=== PATIENT | female | born 1945 | race Caucasian/White ===

== ENCOUNTER 2017-04-16 13:58 | Inpatient (IN) | payer MEDICAID, MEDICARE ==
[~2017-04-16] VITALS: Ht 175.3 cm; Wt 140.2 kg
[2017-04-16] MEDS ORDERED: IV NORMAL SALINE 500 ML BAG IV ONE ×2 (14:30→15:15)
[2017-04-16] MEDS ORDERED: ALBUTEROL SULFATE 2.5 MG/3 ML NEBU NEB ONE ×2 (14:30→16:45)
[2017-04-16] MEDS ORDERED: ALBUTEROL SULFATE 2.5 MG/3 ML NEBU ONE ×2 (15:09→17:11)
[2017-04-16 15:20] LABS: BASOPHILS % (AUTO) 0.5 % (0.0-2.0); HEMATOCRIT 38.4 % (31.2-41.9); LYMPHOCYTES # (AUTO) 2.2 K/uL (20.0-40.0); LYMPHOCYTES % (AUTO) 36.7 % (20.5-51.5); MEAN CORPUSCULAR HEMOGLOBIN 29.9 uug (24.7-32.8); MEAN CORPUSCULAR HGB CONC 34 g/dL (32.3-35.6); MEAN CORPUSCULAR VOLUME 88.6 fL (75.5-95.3); MONOCYTES # (AUTO) 0.9 K/uL (2.0-10.0); NEUTROPHILS % (AUTO) 48.8 % (38.5-71.5); PLATELET COUNT (AUTO) 217 K/uL (179-408); RED BLOOD CELL COUNT(AUTO) 4.34 MIL/uL (3.63-4.92); WHITE BLOOD COUNT (AUTO) 6.1 K/uL (3.8-11.8)
[2017-04-16 15:26] LABS: CREATININE 0.9 mg/dL (0.6-1.3); POTASSIUM 3.7 mmol/L (3.5-5.1)
[2017-04-16 15:40] LABS: BILIRUBIN,DIRECT 0.2 mg/dL (0.0-0.2); BILIRUBIN,TOTAL 0.5 mg/dL (0.2-1.0); TOTAL PROTEIN, SERUM 7.7 g/dL (6.4-8.2)
[2017-04-16] MEDS ORDERED: PIPERACILLIN SODIUM/TAZOBACTAM 3.375 G in IV DEXTROSE 5% 50 ML IV ONE (15:45)
[2017-04-16] MEDS ORDERED: LEVOFLOXACIN 750 MG/D5W 150 ML PIGGYBACK IV ONE (15:45)
[2017-04-16] MEDS ORDERED: VANCOMYCIN IV 1,000 MG in IV DEXTROSE 5% 250 ML IV ONE (15:45)
[2017-04-16] MEDS ORDERED: LEVOFLOXACIN 750MG/D5W 150 ML IV ONE (16:11)
[2017-04-16] MEDS ORDERED: VANCOMYCIN IV 200 ML ONE (16:11)
[2017-04-16] MEDS ORDERED: PIPERACILLIN/TAZOBACTAM/D5W 50 ML IV ONE (16:12)
--- NOTE | 2017-04-16 16:39 | NUR ---
LABS DRAWN/SENT/BLD CX'S DRAWN, PT HAD CT AND XRAYS DONE, PRESENTLY 0.9NS AND LEC=VAQUIN IVPB INFUSING. MONITOR SHOWS NSR, PT POSITIONED FOR COMFORT. PT'S DAUGHTER AT THE BEDSIDE.
--- NOTE | 2017-04-16 18:51 | NUR ---
FAMILY TO BRING MEDICATIONS FOR RECONCILIATION.
--- NOTE | 2017-04-16 19:02 | NUR ---
PT AWAITING FOR TELE BED, BEDSIDE SBAR REPORT TO YAMILETH MONTGOMERY.
[2017-04-16] MEDS ORDERED: CEFTRIAXONE 1 G in IV DEXTROSE 5% 50 ML IV SCH (22:00)
[2017-04-16] MEDS ORDERED: ALBUTEROL SULFATE 2.5 MG/3 ML NEBU NEB PRN (22:00)
[2017-04-16] MEDS ORDERED: TEMAZEPAM 15 MG CAPSULE PO PRN (22:00)
[2017-04-16] MEDS ORDERED: MORPHINE SULFATE 2 MG/1 ML DISP.SYRIN IV PRN (22:00)
[2017-04-16] MEDS ORDERED: ACETAMINOPHEN 325 MG TABLET PO PRN (22:00)
[2017-04-16] MEDS ORDERED: MAGNESIUM HYDROXIDE 30 ML LIQUID UDC PO PRN (22:00)
[2017-04-16] MEDS ORDERED: ONDANSETRON 4 MG/2 ML VIAL IV PRN (22:00)
[2017-04-16] MEDS ORDERED: AZITHROMYCIN 500 MG VIAL IV ONE (22:39)
[2017-04-16] MEDS: AZITHROMYCIN IV 500 MG in IV DEXTROSE 5% 250 ML IV SCH (22:53)
--- NOTE | 2017-04-17 01:22 | NUR ---
Pt. admitted to TELE, under care of Dr. Tidwell Belongs List completed
--- NOTE | 2017-04-17 01:25 | NUR ---
PT RECEIVED FROM ED, VIA BioclonesNEY. DAUGHTER AT BEDSIDE. PT AND FAMILY ORIENTED TO ROOM. PT IS FARSI SPEAKING BUT DAUGHTER ABLE TO TRANSLATE. A/OX3. ABLE TO MAKE NEEDS KNOWN. V/S STABLE. IN NO ACUTE DISTRESS. NO C/O PAIN AT THIS TIME. IV INTACT AND PATENT. ON 2L NC, TOLERATING WELL. SINUS RHYTHM AT 80BPM ON THE TELE MONITOR. AFEBRILE. SAFETY MEASURES IMPLEMENTED. CALL LIGHT WITHIN REACH.
[2017-04-17 01:45] VITALS: BP 128/53
[2017-04-17] MEDS ORDERED: CEFTRIAXONE 1 G VIAL ONE (02:24)
[2017-04-17 04:00] VITALS: BP 146/60
[2017-04-17] MEDS: PANTOPRAZOLE SODIUM 40 MG TABLET.DR PO SCH (06:05)
--- NOTE | 2017-04-17 06:05 | NUR ---
NON-ADMIN PROTONIX. NEW PATIENT
[2017-04-17] MEDS ORDERED: ACETAMINOPHEN 325 MG TABLET ONE (06:12)
--- NOTE | 2017-04-17 06:40 | NUR ---
END OF SHIFT NOTES. PT SLEPT WELL THROUGHOUT SHIFT. IN STABLE CONDITION. FOUND TO BE FEBRILE. COOLING MEASURES IMPLEMENTED. TYLENOL ADMINISTERED ORDERED. WILL ENDORSE TO DAYSHIFT NURSE. IV ABX INFUSED. ON 2LNC, TOLERATING WELL. SINUS ON THE TELE MONITOR. ALL NEEDS ATTENDED. SAFETY MAINTAINED. CALL LIGHT WITHIN REACH.
[2017-04-17 08:30] LABS: BASOPHILS % (AUTO) 0.4 % (0.0-2.0); EOSINOPHILS % (AUTO) 0.1 % (0.0-7.0); HEMATOCRIT 38.6 % (31.2-41.9); HEMOGLOBIN 12.8 g/dL (10.9-14.3); LYMPHOCYTES % (AUTO) 32.1 % (20.5-51.5); MEAN CORPUSCULAR HEMOGLOBIN 29.7 uug (24.7-32.8); MEAN CORPUSCULAR HGB CONC 33 g/dL (32.3-35.6); MEAN CORPUSCULAR VOLUME 89.5 fL (75.5-95.3); MONOCYTES # (AUTO) 0.8 K/uL (2.0-10.0); MONOCYTES % (AUTO) 13.6 % (0.0-11.0); NEUTROPHILS # (AUTO) 3.3 K/uL (1.8-8.9); NEUTROPHILS % (AUTO) 53.8 % (38.5-71.5); PLATELET COUNT (AUTO) 191 K/uL (179-408); RED BLOOD CELL COUNT(AUTO) 4.31 MIL/uL (3.63-4.92); WHITE BLOOD COUNT (AUTO) 6.1 K/uL (3.8-11.8)
[2017-04-17] MEDS ORDERED: MORPHINE SULFATE 4 MG/1 ML DISP.SYRIN IV PRN (08:45)
[2017-04-17] MEDS ORDERED: ASPIRIN EC 325 MG TABLET.DR PO SCH (09:00)
[2017-04-17 09:06] LABS: THYROID STIMULATING HORMONE 1.149 mIU/mL (0.358-3.740)
[2017-04-17 09:39] LABS: BILIRUBIN,TOTAL 0.4 mg/dL (0.2-1.0); MAGNESIUM 2.1 mg/dL (1.8-2.4); POTASSIUM 3.9 mmol/L (3.5-5.1); TOTAL PROTEIN, SERUM 7.4 g/dL (6.4-8.2)
[2017-04-17] MEDS ORDERED: FURO-151 PO (11:20)
[2017-04-17] MEDS ORDERED: ERGO500040 PO (11:20)
[2017-04-17] MEDS ORDERED: ROSU10TA PO (11:20)
[2017-04-17] MEDS ORDERED: ATEN50TA PO (11:20)
[2017-04-17] MEDS ORDERED: CLOP75TA15 PO (11:20)
[2017-04-17] MEDS: VALSARTAN 80 MG TABLET PO SCH ×2 (11:25→22:56)
[2017-04-17] MEDS: FUROSEMIDE 40 MG/4 ML VIAL IV SCH ×2 (11:25→21:28)
[2017-04-17] MEDS: ENOXAPARIN SODIUM 40 MG/0.4 ML DISP.SYRIN SQ SCH (11:28)
[2017-04-17 11:42] VITALS: BP 137/68
[2017-04-17] MEDS ORDERED: IPRATROPIUM BROMIDE 0.5 MG/2.5 ML NEBU NEB ONE (15:15)
[2017-04-17] MEDS ORDERED: AZITHROMYCIN IV 500 MG in IV DEXTROSE 5% 250 ML IV SCH (15:15)
[2017-04-17] MEDS ORDERED: ALBUTEROL SULFATE 2.5 MG/ 0.5 ML NEBU NEB ONE (15:15)
[2017-04-17] MEDS ORDERED: IPRATROPIUM BROMIDE 0.5 MG/2.5 ML NEBU NEB PRN (15:15)
[2017-04-17] MEDS ORDERED: ALBUTEROL SULFATE 2.5 MG/ 0.5 ML NEBU NEB PRN (15:15)
[2017-04-17 15:35] VITALS: BP 109/51
[2017-04-17 19:30] VITALS: BP 115/53
[2017-04-17] MEDS: IPRATROPIUM BROMIDE 0.5 MG/2.5 ML NEBU NEB SCH (19:30)
[2017-04-17] MEDS: ALBUTEROL SULFATE 2.5 MG/3 ML NEBU NEB SCH (19:30)
--- NOTE | 2017-04-17 19:54 | NUR ---
Pt refused HHN tx. No distress noted. QUANG Saucedo notified.
--- NOTE | 2017-04-17 20:00 | NUR ---
RECEIVED PT AWAKE IN CHAIR, SHE'S ALERT AND ORIENTED X4, DENIES PAIN OR DISCOMFORT. SAFETY MEASURES INITIATED, CALL LIGHT WITHIN PT'S REACH. WILL CONTINUE TO MONITOR PT
[2017-04-17] MEDS: methylPREDNISolone SOD SUCC 40 MG/ML VIAL IV SCH (21:28)
[2017-04-17] MEDS: DOCUSATE SODIUM 100 MG CAPSULE PO SCH (21:29)
[2017-04-17] MEDS: ATORVASTATIN 10 MG TABLET PO SCH (21:29)
[2017-04-17] MEDS: LACTOBACILLUS RHAMNOSUS GG 1 EACH CAPSULE PO SCH (21:29)
[2017-04-17] MEDS: AZITHROMYCIN IV 500 MG in IV DEXTROSE 5% 250 ML IV SCH (21:34)
[2017-04-17] MEDS: CEFTRIAXONE 1 G in IV DEXTROSE 5% 50 ML IV SCH (23:53)
--- NOTE | 2017-04-18 00:25 | NUR ---
ASSISTED PT TO BATHROOM, PT VOIDED AND ASSISTED BACK TO BED. NO S/S OF PAIN OR DISTRESS NOTED AT PRESENT, CALL LIGHT WITHIN PT'S REACH. WILL CONTINUE TO MONITOR PT
[2017-04-18 04:00] VITALS: BP 112/59
[2017-04-18] MEDS: methylPREDNISolone SOD SUCC 40 MG/ML VIAL IV SCH ×4 (06:46→21:00)
[2017-04-18] MEDS: PANTOPRAZOLE SODIUM 40 MG TABLET.DR PO SCH (06:46)
--- NOTE | 2017-04-18 07:00 | NUR ---
While rounding in a.m. for endorsement with nightshift R.N. Patient door was closed per endorsement family/son at bed side. Will come back at a later time to evaluate patient.
--- NOTE | 2017-04-18 07:04 | NUR ---
PT IS ASLEEP WITH NO S/S OF PAIN OR DISCOMFORT. CALL LIGHT WITHIN REACH, ALL NEEDS MET
[2017-04-18] MEDS: IPRATROPIUM BROMIDE 0.5 MG/2.5 ML NEBU NEB SCH ×4 (07:26→20:17)
[2017-04-18] MEDS: ALBUTEROL SULFATE 2.5 MG/3 ML NEBU NEB SCH ×4 (07:26→20:17)
--- NOTE | 2017-04-18 08:40 | NUR ---
Post morning change of shift endorsement. Patient is sitting low in bed. Offered to sit up higher but patient declined to change sitting position at this point and time. Noted no n.c. at [address] Instructed family and patient in ambulating. Per family and patient verbalized understanding of instructions. Patient was noted not to have saline lock in place; hard stick, patient pulled i.v. while changing position for breakfast. Call light with in reach will continue to monitor.
[2017-04-18 10:19] LABS: ABG BASE EXCESS 4.8 mmol/L; ABG HCO3 30.6 mmol/L; ABG PCO2 49.8 mmHg (35.0-45.0); ABG PH 7.406 (7.350-7.450); ABG PO2 55.9 mmHg (75.0-100.0); ABG SITE RIGHT RADIAL; ABG TOTAL HEMOGLOBIN 13.1 G/dL (12.0-16.0); COHb 1.3 % (0.5-1.5); MetHb 0.1 % (0.0-1.5); O2Hb 85.9 % (94.0-97.0); VENT MODE ROOM AIR
--- NOTE | 2017-04-18 10:30 | NUR ---
noted abg on ra with ph 7.40, poco2 at 49.8, pO2 55.9, Hco3 at 3.6; metabolic alkalosis, aware. New orders and carried out.
[2017-04-18] MEDS: FUROSEMIDE 40 MG/4 ML VIAL IV SCH ×3 (10:45→20:59)
--- NOTE | 2017-04-18 10:45 | NUR ---
While rounding on medication pass. Nurse noted dr. Carpenter at nurses station. Per order patient was ambulated down arriaga with cane and family member. Patient safe to ambulate, no cardiopulmonary distress noted while ambulating down arriaga. Patient ambulated 100 feet to and from bed. While returning to bed patient was noted with o2 sat at 78% on RA, made md aware. Place patient back on o2 via n.c. at 3 ltrs, o2 sat improved to 86%, md aware. Noted orders and carried out. Patient, md. Aware of saline lock not in place and hard stick status. Patient family teaching on compliance of o2 therapy, patient/family understood instructions and verbalized understanding. Call light placed with reach. new orders noted and carried out.
[2017-04-18 11:12] VITALS: BP 105/60
[2017-04-18] MEDS: LACTOBACILLUS RHAMNOSUS GG 1 EACH CAPSULE PO SCH ×2 (11:32→20:58)
[2017-04-18] MEDS: ASPIRIN EC 325 MG TABLET.DR PO SCH (11:32)
[2017-04-18] MEDS: VALSARTAN 80 MG TABLET PO SCH ×2 (11:34→21:02)
[2017-04-18] MEDS: ENOXAPARIN SODIUM 40 MG/0.4 ML DISP.SYRIN SQ SCH (11:34)
[2017-04-18] MEDS: CLOPIDOGREL 75 MG TABLET PO SCH (14:14)
--- NOTE | 2017-04-18 14:17 | NUR ---
Noted family member/daughter at bedside. Family teaching on importance in compliance of treatment of improved cardiac output with medication administration. Noted at bed side culturele, ASA, and plavix. Family mbr verbalized understanding of instructions. Patient was asleep in bed could not take medication at this point and time.
[2017-04-18 15:27] VITALS: BP 109/54
[2017-04-18 19:40] VITALS: BP 136/63
--- NOTE | 2017-04-18 20:00 | NUR ---
RECEIVED PT AWAKE IN BED. SHE'S ALERT AND ORIENTED X4, DENIES PAIN OR DISCOMFORT. FAMILY AT BEDSIDE VISITING WITH PT. CALL LIGHT WITHIN REACH SAFETY MEASURES IN PLACE
[2017-04-18] MEDS: DOCUSATE SODIUM 100 MG CAPSULE PO SCH (20:58)
[2017-04-18] MEDS: ATORVASTATIN 10 MG TABLET PO SCH (20:58)
[2017-04-18 20:59] VITALS: BP 136/63
[2017-04-18] MEDS: AZITHROMYCIN IV 500 MG in IV DEXTROSE 5% 250 ML IV SCH (22:36)
[2017-04-18] MEDS: CEFTRIAXONE 1 G in IV DEXTROSE 5% 50 ML IV SCH (23:50)
--- NOTE | 2017-04-19 | NUR ---
PT IS ASLEEP BUT EASILY AROUSABLE, NO EVIDENCE OF PAIN OR DISTRESS NOTED, WILL CONTINUE TO MONITOR PATIENT
[2017-04-19 05:28] VITALS: BP 118/44
--- NOTE | 2017-04-19 06:03 | NUR ---
PT CONTINUES TO SLEEP PEACEFULLY WITH NO S/S OF PAIN OR RESP DISTRESS AT THIS THIS TIME. NO CONCERNS AT PRESENT, WILL CONTINUE TO MONITOR PT
[2017-04-19] MEDS: PANTOPRAZOLE SODIUM 40 MG TABLET.DR PO SCH (06:33)
--- NOTE | 2017-04-19 07:30 | NUR ---
Received report from overnight associate nurse, patient in bed asleep, no evidence of distress noted at this time. bed in low position, side rails up x2.
[2017-04-19] MEDS: IPRATROPIUM BROMIDE 0.5 MG/2.5 ML NEBU NEB SCH ×3 (07:33→14:49)
[2017-04-19] MEDS: ALBUTEROL SULFATE 2.5 MG/3 ML NEBU NEB SCH ×3 (07:33→14:48)
[2017-04-19 08:03] LABS: BASOPHILS % (AUTO) 0.1 % (0.0-2.0); HEMATOCRIT 36.8 % (31.2-41.9); HEMOGLOBIN 12.6 g/dL (10.9-14.3); LYMPHOCYTES # (AUTO) 1.3 K/uL (20.0-40.0); LYMPHOCYTES % (AUTO) 18.8 % (20.5-51.5); MEAN CORPUSCULAR HEMOGLOBIN 30.2 uug (24.7-32.8); MEAN CORPUSCULAR HGB CONC 34 g/dL (32.3-35.6); MEAN CORPUSCULAR VOLUME 88.2 fL (75.5-95.3); MONOCYTES # (AUTO) 0.8 K/uL (2.0-10.0); NEUTROPHILS # (AUTO) 4.8 K/uL (1.8-8.9); NEUTROPHILS % (AUTO) 70.1 % (38.5-71.5); PLATELET COUNT (AUTO) 228 K/uL (179-408); RED BLOOD CELL COUNT(AUTO) 4.17 MIL/uL (3.63-4.92); WHITE BLOOD COUNT (AUTO) 6.9 K/uL (3.8-11.8)
[2017-04-19 08:30] LABS: CREATININE 1.2 mg/dL (0.6-1.3); MAGNESIUM 2.4 mg/dL (1.8-2.4); PHOSPHOROUS 4.6 mg/dL (2.5-4.9); POTASSIUM 4.1 mmol/L (3.5-5.1)
[2017-04-19] MEDS: ASPIRIN EC 325 MG TABLET.DR PO SCH (09:52)
[2017-04-19] MEDS: LACTOBACILLUS RHAMNOSUS GG 1 EACH CAPSULE PO SCH (09:52)
[2017-04-19] MEDS: methylPREDNISolone SOD SUCC 40 MG/ML VIAL IV SCH (09:53)
[2017-04-19] MEDS: FUROSEMIDE 40 MG/4 ML VIAL IV SCH (09:57)
[2017-04-19] MEDS: CLOPIDOGREL 75 MG TABLET PO SCH (09:57)
[2017-04-19] MEDS: VALSARTAN 80 MG TABLET PO SCH (09:57)
[2017-04-19] MEDS: ENOXAPARIN SODIUM 40 MG/0.4 ML DISP.SYRIN SQ SCH (09:59)
[2017-04-19 11:09] VITALS: BP 125/51
[2017-04-19 12:36] LABS: ABG BASE EXCESS 9.9 mmol/L; ABG HCO3 36.5 mmol/L; ABG PCO2 57.9 mmHg (35.0-45.0); ABG PH 7.417 (7.350-7.450); ABG PO2 67.1 mmHg (75.0-100.0); ABG SITE RIGHT BRACHIAL; COHb 1.3 % (0.5-1.5); O2Hb 92.2 % (94.0-97.0); VENT MODE Nasal Cannula
[2017-04-19] MEDS ORDERED: ASPI-610 PO (12:57)
[2017-04-19] MEDS ORDERED: AZIT250T13 PO (12:57)
[2017-04-19] MEDS ORDERED: VALS80TA2 PO (12:57)
[2017-04-19] MEDS ORDERED: PRED20TA PO (13:52)
[2017-04-19] MEDS ORDERED: METH4TAB3 PO (13:52)
[2017-04-19] MEDS ORDERED: ALBU6.7H INH (13:52)
[2017-04-19 15:02] VITALS: BP 117/54
--- NOTE | 2017-04-19 17:30 | NUR ---
Patient was discharged after reviewing all discharge medications, and education. IV site discontinued. Patient ambulated to wheelchair, and was taken to meet daughter at the entrance of the building.
[2017-04-19] MEDS ORDERED: AZITHROMYCIN 250 MG TABLET PO SCH (21:00)
== END 2017-04-19 17:30 | disposition home or self-care (01) | DRG 133 ==
LOC: ER 13:58 → EDBD 22:01 → OBSER 22:01 → TELE 04-17 01:08 → MED 04-18 17:37
PROVIDERS: ADMIT Internal Medicine; ATTEND Internal Medicine
DX: J96.01 Acute respiratory failure with hypoxia (principal); I21.A1 Myocardial infarction type 2; I50.33 Acute on chronic diastolic (congestive) heart failure; J18.8 Other pneumonia, unspecified organism; E44.0 Moderate protein-calorie malnutrition; I31.3 Pericardial effusion (noninflammatory); Z68.42 Body mass index [BMI] 45.0-49.9, adult; E66.2 Morbid (severe) obesity with alveolar hypoventilation; I11.0 Hypertensive heart disease with heart failure; J96.02 Acute respiratory failure with hypercapnia; I69.154 Hemiplegia and hemiparesis following nontraumatic intracerebral hemorrhage affecting left non-dominant side; Z71.3 Dietary counseling and surveillance; J45.909 Unspecified asthma, uncomplicated; E78.5 Hyperlipidemia, unspecified; G47.33 Obstructive sleep apnea (adult) (pediatric); R73.03 Prediabetes; J98.11 Atelectasis; I70.0 Atherosclerosis of aorta; I25.2 Old myocardial infarction; I25.10 Atherosclerotic heart disease of native coronary artery without angina pectoris; Z90.49 Acquired absence of other specified parts of digestive tract; Z79.02 Long term (current) use of antithrombotics/antiplatelets
CPT/HCPCS: 36415; 36600; 70030-TC; 71045; 71250; 83605; 83735; 84100; 84443; 85025; 85730; 87040; 87400; 93005; 93307; 94640; A4663; G0378; J0456; J0696; J1650; J1940; J1956; J2543; J2920; J3370; J3590; J7030; J7050; J7060